=== PATIENT | male | born 1940 | race Caucasian/White ===

== ENCOUNTER → 2019-12-07 10:41 | Outpatient (BNVA) | payer MEDICARE, SELFPAY | PROVIDERS: Family Provider Nurse Practitioner Family; Visit Provider Family Medicine | DX: I10 Essential (primary) hypertension (principal); N40.0 Benign prostatic hyperplasia without lower urinary tract symptoms; I25.89 Other forms of chronic ischemic heart disease; E78.2 Mixed hyperlipidemia; K21.9 Gastro-esophageal reflux disease without esophagitis | CPT/HCPCS: 80053; 80061; 84153; 85025 ==

== ENCOUNTER → 2019-12-20 09:53 | Outpatient (BNVA) | payer MEDICARE, SELFPAY | PROVIDERS: Family Provider Nurse Practitioner Family; Visit Provider Nurse Practitioner Family | DX: R73.9 Hyperglycemia, unspecified (principal); N30.00 Acute cystitis without hematuria | CPT/HCPCS: 36416; 81001; 82962; 83036; 87077; 87086; 87186 ==

== ENCOUNTER 2020-04-24 08:24 | Outpatient (CLI) | payer MEDICARE, SELFPAY ==
--- NOTE | 2020-04-24 09:00 | CT_ITS ---
WS: [id number] CTA ABDOMEN TECHNIQUE: Noncontrast plus contrast enhanced CTA of the abdominal aorta with coronal and sagittal re formatted images and additional MIP Images. CLINICAL INFORMATION: AAA COMPARISON: CT March 22, 2014 and ultrasound 08/10/2019 and 08/25/2018 DLP: 1585.[address] scans at [facility] use at least one of these dose optimization techniques: automat ed exposure control; mA and/or kV adjustment per patient size (includes targeted exams where dose is matched to clinical indication); or iterative reconstruction. FINDINGS: Again seen is the infrarenal abdominal aortic aneurysm unchanged since the CT in 2013 measuring 3.2 x 3.4 x 7.1 cm AP by transverse by craniocaudal. Moderate atheromatous disease abdominal aorta. 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 SMA is patent. Proximal renal arteries are patent with mild atheromatous disease. Tortuous calcified common iliac arteries. Subsegmental atelectasis in the lung bases. Small pericardial effusion. Normal GE junction. Mild diff use infiltration of the liver. Adrenal glands are normal. Normal renal parenchymal enhancement. Fatty atrophy of the pancreas. Tiny cystic lesion involving the pancreatic body contiguous with the duct l ikely represent sidebranch IPM and measuring 9 mm. This appears stable since 2013. Tiny calculus in the proximal right ureter measuring 5 mm. Mild right pelvocaliectasis. Distal right ureter is decompressed. Tiny calculus at the right UVJ which appears within the bladder measuring 3 m m. Left ureter is decompressed. Left lower pole renal cyst measuring 1.6 cm. Enlarged prostate measur ing 4.4 x 5.9 CM. Recommend correlation PSA. Sigmoid diverticulosis. No evidence of acute diverticuli tis. Prior appendectomy. No abdominal lymphadenopathy. No inguinal lymphadenopathy. Disc space narrowing worse L5-S1 with endp late sclerosis. CT/CT angio abdomen [id number] IMPRESSION: 1. Stable infrarenal abdominal aortic aneurysm measuring3.2 x 3.4 x 7.1 cm AP by transverse by craniocaudal unchanged since 2013 2. 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 3. Tiny calculus distal right ureter measuring 5 mm with mild right pelvic mary iectasis. Tiny calculus adjacent to the right UVJ which appears within the blad nayely measuring 3 mm. Mid and distal right ureter is decompressed. 4. Enlarged prostate. Recommend correlation PSA. 5. 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 This appears unc hanged since 2014
[2020-04-24 09:27] LABS: Blood Urea Nitrogen 18 mg/dL (8-23)
[2020-04-24] MEDS: iohexol 350 mg/mL 100 mL Btl IV (09:50)
== END 2020-04-24 08:25 | disposition home or self-care (01) ==
LOC: RADWPI 08:27
PROVIDERS: Family Provider Family Medicine; PCP Family Medicine; Visit Provider Internal Medicine Cardiovascular Disease
DX: I71.4 Abdominal aortic aneurysm, without rupture (principal); I72.3 Aneurysm of iliac artery; N20.1 Calculus of ureter; N40.0 Benign prostatic hyperplasia without lower urinary tract symptoms
CPT/HCPCS: 74175; 82565; 84520; Q9967

== ENCOUNTER → 2021-02-11 11:19 | Outpatient (BNVA) | payer MEDICARE, SELFPAY | PROVIDERS: Family Provider Family Medicine; PCP Family Medicine; Visit Provider Internal Medicine Cardiovascular Disease | DX: Z01.818 Encounter for other preprocedural examination (principal); Z20.822 Contact with and (suspected) exposure to COVID-19; Z11.52 Encounter for screening for COVID-19; I10 Essential (primary) hypertension; I25.10 Atherosclerotic heart disease of native coronary artery without angina pectoris; E78.2 Mixed hyperlipidemia; Z45.010 Encounter for checking and testing of cardiac pacemaker pulse generator [battery]; I71.4 Abdominal aortic aneurysm, without rupture; R73.9 Hyperglycemia, unspecified | CPT/HCPCS: 80048; 85025; 85610; 86850; 86900; 87635 ==

== ENCOUNTER 2021-02-15 13:34 | Observation (INO) | payer MEDICARE, SELFPAY ==
[2021-02-15 11:39] VITALS: BMI 31.2
--- NOTE | 2021-02-15 12:23 | W.PM.OPSUD ---
Surgery/Procedure H&P Update DATE OF PROCEDURE: February 15, 2021 DATE H&P PERFORMED: 02/11/21 H&P UPDATE INFORMATION: I have reviewed H&P completed within last 30 days, I have examined patient prior to procedure and No changes to prior documentation PREOP DIAGNOSIS: Pacemaker ALFONZO PRIMARY INDICATION FOR PROCEDURE: Pacemaker ALFONZO PLANNED PROCEDURE: Operation Date: 02/15/21 12:00 Proposed Procedures p Pacemaker Generator Change ppm(Not Applicable) - Sanjuana Craven MD PATIENT REASSESSED PRIOR TO SEDATION, WITH NO CHANGE NOTED: Yes PHYSICAL EXAM: alert, oriented x 3, clear to auscultation bilaterally and regular rate & rhythm AIRWAY EVAL/ANESTHESIA PLAN: normal airway, see other exam findings, ASA II, ASA III, Local Anesthesia, Risks, benefits & alternatives of sedation and/or procedure discussed and Patient agrees to continue as planned
[2021-02-15 13:28] VITALS: BP 152/83; PULSE 61; PULSE 62; RESP 17; TEMP 36.3; O2SAT 94
--- NOTE | 2021-02-15 13:32 | PM.OP ---
Operative Report Date of procedure: February 15, 2021 Pre-op Diagnosis: Pacemaker ALFONZO Procedure: PROCEDURE: PACEMAKER REVISION PREOPERATIVE DIAGNOSIS: Pacemaker elective replacement indication. POSTOPERATIVE DIAGNOSIS: Pacemaker elective replacement indication. ESTIMATED BLOOD LOSS: Around 5 milliliters. COMPLICATIONS: None. BRIEF HISTORY: The patient is a 80-year-old white male who had a permanent pacemaker implantation for symptomatic bradycardia/high degree heart block. The patient was found to have elective replacement indication, during routine office followup evaluation. For further management of patient's condition for the symptomatic bradycardia, the patient required a pacemaker revision. Patient required a dual-chamber pacemaker for symptom relief and the need for AV synchrony The procedure was explained to the patient in detail with the risks and benefits. The risks of bleeding, hematoma, vascular injury, infection and other concomitant complications were explained in detail, which the patient understood well and consented to proceed. PROCEDURES PERFORMED: 1. Explantation of the old pacemaker generator. 2. Implantation of the new generator. The patient brought to the Cardiac [employer]. The left side of the neck and the subclavian area were cleaned and draped in a sterile fashion. 1% Xylocaine was used for local anesthetic agent. A 2 inch long incision was made just below the previous pacemaker scar. By sharp and blunt dissection, the pacemaker pocket was accessed. The old generator was delivered from the pocket. The generator was detached from the lead. The new Medtronic generator was attached to the lead. The pacemaker pocket was copiously irrigated with vancomycin solution. Complete hemostasis was achieved. The lead was positioned behind the generator and the generator was attached to the pectoralis fascia by suturing with 0 Surgilon. Sponge counts were confirmed. The pacemaker pocket was closed in layers. Skin was approximated using 4-0 Vicryl. EXPLANTED DEVICE: Pacemaker Generator: Brand: VERSA. Model number: [id number]. Serial number: [id number]. Date of implant: IMPLANTED DEVICES: Ventricular Lead: Date of implantation: 04/01/2005 Model number: [id number]/58 Serial number: [id number] Make: Medtronic. Atrial lead Date of implantation: 04/01/2005 Model number: [id number]/[id number] Serial number: [id number] Make: Medtronic. Implanted Generator: Date of implantation : 02/15/2021 Brand: [place] SISI Griffiths. Model number: [id number] Serial number: [id number] Make: Medtronic Stimulation Threshold: The ventricular sensing was not obtained because of the pacemaker dependency. Ventricular lead impedance was 551 ohms and the pacing threshold was 0.075 volts at .4 milliseconds. The atrial sensing was 2.4 millivolts. Atrial lead impedance was 342 ohms and the pacing threshold was 2.5 volts at 0.4 milliseconds. The pacemaker was set for DDDR mode with an upper rate of 130 and a lower rate of 60. A pressure dressing was applied over the pacemaker site. The patient was transferred back to medical floor in stable condition. Sponge counts were correct.
[2021-02-15 14:50] VITALS: PULSE 61; RESP 18; O2SAT 97
[2021-02-15 15:54] VITALS: BP 149/79; PULSE 61; RESP 17; TEMP 36.4; O2SAT 97
[2021-02-15] MEDS: tamsulosin 0.4 mg Capsule PO (17:37)
[2021-02-15] MEDS: lisinopril 20 mg Tablet 40 MG PO (17:37)
[2021-02-15] MEDS: TRAMadol 50 mg Tablet PO (17:38)
--- NOTE | 2021-02-15 18:32 | PC.NURSE ---
Pt resting in bed. Surgical site assessed-- C/D/I, no signs of hematoma, sling in place. Call light within reach, no needs at this time.
[2021-02-15 19:41] VITALS: BP 115/69; PULSE 83; RESP 18; TEMP 37; O2SAT 93
[2021-02-15 20:35] VITALS: PULSE 65; RESP 17; O2SAT 96
[2021-02-15 22:00] VITALS: PULSE 59
[2021-02-15] MEDS: metoprolol tartrate 50 mg Tablet 100 MG PO (22:13)
[2021-02-16] VITALS (7 sets, daily range): BP systolic 127–148; BP diastolic 70–81; PULSE 59–61; RESP 17–18; TEMP 36.5–36.7; O2SAT 93
--- NOTE | 2021-02-16 06:00 | ECG_ITS ---
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 Measurements Intervals [place] Rate: 60 P: 169 OK: 176 QRS: -75 QRSD: 208 T: 104 QT: 496 QTc: 496 Interpretive Statements ELECTRONIC ATRIAL PACEMAKER ELECTRONIC VENTRICULAR PACEMAKER ABNORMAL RHYTHM ECG No previous ECG available for comparison Electronically Signed On 02-17-2021 10:52:55 CDT by Mireay Hudson M.D. [id number]
[2021-02-16] MEDS: sodium chloride 0.9% 1,000 ML 75 ML IV (09:49)
[2021-02-16] MEDS: lisinopril 20 mg Tablet 40 MG PO (09:51)
[2021-02-16] MEDS: metoprolol tartrate 50 mg Tablet 100 MG PO (09:51)
[2021-02-16] MEDS: tamsulosin 0.4 mg Capsule PO (09:52)
[2021-02-16] MEDS: aspirin 81 mg EC Tablet PO (09:53)
[2021-02-16] MEDS: atorvastatin 40 mg Tablet 80 MG PO (09:53)
--- NOTE | 2021-02-16 12:09 | PM.DCS ---
Discharge Providers Date of Admission: 02/15/21 13:34 Date of Discharge: February 16, 2021 Attending Provider at Admission: Sanjuana Craven MD Attending Provider at Discharge: Sanjuana Craven MD Primary Care Provider: Corona Sahni MD Diagnoses at Discharge Discharge Diagnosis (1) Pacemaker at end of battery life: Status: Acute Permanent problem details: S/p generator change on February 15, 2021 (2) Atherosclerotic heart disease of [place] coronary artery without angina pectoris: Status: Acute Qualifiers: [place] vs. transplanted heart: [place] heart Qualified Code(s): I25.10 - Atherosclerotic heart disease of [place] coronary artery without angina pectoris (3) Hypertension: Status: Acute Qualifiers: Hypertension type: essential hypertension Qualified Code(s): I10 - Essential (primary) hypertension (4) Hyperlipidemia: Status: Acute Qualifiers: Hyperlipidemia type: mixed hyperlipidemia Qualified Code(s): E78.2 - Mixed hyperlipidemia (5) GERD (gastroesophageal reflux disease): Status: Acute Reason for Visit Reason for Visit: ppm gen exchange Hospital Course Hospital Course 80-year-old man with past medical history of CAD with history of PCI several years back, s/p permanent pacemaker placement in March 2005 and subsequent generator change in March 2013 was admitted electively after his pacemaker was found at [facility] for generator change by Dr. Craven. He underwent successful explantation of previous generator followed by implantation of new generator. Pacemaker was interrogated and was found to be functioning normally. No complaints overnight and this morning. Physical Exam Narrative: EXAM NARRATIVE: GENERAL: Obese elderly man lying in bed in no acute distress HEENT: Pupils equal round reactive to light. No pallor or icterus. NECK: No JVD appreciated. No carotid bruit. CARDIOVASCULAR SYSTEM: S1-S2 regular. No S3 or S4 present. No murmur or gallops. RESPIRATORY SYSTEM: Chest clear to auscultation. No wheezes rhonchi or rubs heard. Left upper chest generator in situ; incision well approximated with no significant hematoma; mild bruising noted. ABDOMEN: Soft, nontender and nondistended. Normal bowel sounds present. EXTREMITIES: No cyanosis or clubbing. No edema. CHEMISTRY ASSOCIATE: Patient is alert oriented ?3. No focal neurological deficits. Discharge Data Data Completed and Pending: Completed Studies During Hospitalization Category Date Time Status ADMINISTRATION CLERK request for service Routin e Exams 02/15/21 11:00 Completed Vitals: Last Vital Signs Temp 97.7 F 02/16/21 08:00 Pulse 60 02/16/21 08:33 Resp 18 02/16/21 08:33 BP 148/81 02/16/21 08:00 Pulse Ox 93 02/16/21 08:33 Discharge Plan Discharge Patient Disposition: Home Condition: Stable Prescriptions: New cephalexin 500 mg capsule 500 mg PO Q6H 5 Days Qty: 20 RF: 0 Continued tramadol 50 mg tablet 50 mg PO DAILY PRN (Reason: pain) RF: 0 aspirin [Adult Low Dose Aspirin] 81 mg tablet,delayed release (DR/EC) 81 mg PO DAILY RF: 0 clopidogrel 75 mg tablet 75 mg PO DAILY RF: 0 lisinopril 40 mg tablet 40 mg PO BID Qty: 180 RF: 3 metoprolol tartrate 100 mg tablet 100 mg PO Q12H Qty: 180 RF: 3 nitroglycerin [Nitrostat] 0.4 mg tablet, sublingual 0.4 mg SUBLINGUAL Q5M PRN (Reason: chest pain) Qty: 30 RF: 1 metformin 500 mg tablet 500 mg PO BID RF: 0 albuterol sulfate [ProAir HFA] 90 mcg/actuation HFA aerosol inhaler 2 puff INHALATION QID PRN (Reason: shortness of breath or wheezing) Qty: 6.7 RF: 0 tamsulosin 0.4 mg capsule 0.4 mg PO BID Qty: 180 RF: 3 rosuvastatin [Crestor] 40 mg tablet 40 mg PO DAILY Qty: 90 RF: 1 (DME) Blood Glucose Test Strip See Rx Instructions .ROUTE .MEDSUPPLY Qty: 50 RF: 3 amlodipine 5 mg tablet See Rx Instructions .ROUTE .COMPLEX Qty: 90 RF: 3 Fish Oil 1,200 mg capsule 1,200 mg PO DAILY RF: 0 Discharge Orders: Discharge Order (Routine); Ordered 02/16/21 Ordered By: Mireya Hudson Referrals: Sanjuana Craven MD [Physician] - 2 months Cady Wahl FNP [Nurse Practitioner] - 7-10 days (Please contact [facility] services Thursday for a follow-up appointment with Cady Wahl as well as a follow-up appointment with Dr. Craven. ) Discharge Diet: Cardiac Discharge Activity: Increase activity as tolerated and Limit activity as instructed Patient Instructions: Cephalexin (By mouth), Pacemaker (DC), Opioid Safety, Post Pacemaker - Herber Discharge Attestations Time Spent in Discharge Care*: greater than 30 min Specific Discharge Activities: educating patient, documenting/other paperwork and evaluating patient/reviewing data Status at Discharge: Cognitive status at discharge: cognitively intact, Behavioral status at discharge: cooperative, Overall status at discharge: patient is back to baseline Quality Metrics Clinical Quality Measures During this hospital stay, did patient experience: None Coding Level of Care Code Acute Chg FW DC note Diagnoses Pacemaker at end of battery life Z45.010 Atherosclerotic heart disease of [place] coronary artery without angina pectoris I25.10 [place] vs. transplanted heart: [place] heart Hypertension I10 Hypertension type: essential hypertension Hyperlipidemia E78.2 Hyperlipidemia type: mixed hyperlipidemia GERD (gastroesophageal reflux disease) K21.9
--- NOTE | 2021-02-16 13:43 | PC.NURSE ---
discharge instructions discussed with patient. patient verbalized understanding of those instructions. dressing to incision was changed. pacemaker ID booklet was given to patient. activity restrictions were also gone over as well as incision care. IV was removed tip intact bleeding controlled with 2x2. patient taken by wheelchair, accompanied by son to private vehicle.
== END 2021-02-16 14:07 | disposition home or self-care (01) ==
LOC: MEDSURG 14:00
PROVIDERS: Admitting Provider Internal Medicine Cardiovascular Disease; PCP Family Medicine; Visit Provider Internal Medicine Cardiovascular Disease
DX: Z45.010 Encounter for checking and testing of cardiac pacemaker pulse generator [battery] (principal); I25.10 Atherosclerotic heart disease of native coronary artery without angina pectoris; I10 Essential (primary) hypertension; E78.2 Mixed hyperlipidemia; K21.9 Gastro-esophageal reflux disease without esophagitis; I25.110 Atherosclerotic heart disease of native coronary artery with unstable angina pectoris; N40.0 Benign prostatic hyperplasia without lower urinary tract symptoms; E78.5 Hyperlipidemia, unspecified; M19.90 Unspecified osteoarthritis, unspecified site; Z87.891 Personal history of nicotine dependence
CPT/HCPCS: 33213; 36415; 93005; 97165; C1769; C1786; G0378; J0690; J2250; J3010; J7030; J7050

== ENCOUNTER 2021-03-27 06:41 | Outpatient (CLI) | payer MEDICARE, SELFPAY ==
--- NOTE | 2021-03-27 07:15 | USCV_ITS ---
Eligio Welch Age: 80 Gender: M : 1940 Exam Date: 03/27/2021 07:01 Ordering Phys: Sanjuana Craven MD ([email or web address]) Technologist: ROWDY Exam Location: [facility] [place] Indication: AAA HISTORY: AAA Diameter (cm) AP x Transverse x Length Velocity (cm/s) Waveform Prox Aorta: 3.02 x 3.41 x 94.30 Mid Aorta: 3.54 x 4.18 x 110.90 Distal Aorta: 3.25 x 3.32 x 43.80 Right Iliac Prox: 1.55 x 1.79 x 35.50 Left Iliac Prox: 1.41 x 2.17 x 85.90 Stent Prox Landing x x Aneurysmal Sac Max x x Lt Lat Sac Dim Rt Lat Sac Dim Stent Dist Landing x x Right Iliac Stent x x Left Iliac Stent x x Right Renal Art Left Renal Art FINDINGS: Moderate to heavy dense irregular diffuse plaques in the abdominal aorta. Aneurysmal dilatation of the mid to distal abdominal aorta Dilated common iliac arteries bilaterally CONCLUSIONS 1. Ectatic proximally abdominal aorta 2. Aneurysmal dilatation of the mid to distal abdominal aorta, measuring 3.54 x 4.18 at the mid segment and 3.25 x 3.32 distally. 3. Moderate to heavy dense irregular diffuse plaques in the abdominal aorta. 4. Diffusely ectatic proximal iliac arteries bilaterally. 5. No evidence of any significant stenosis, based on the Doppler flow velocities. Compared to the study from 08/10/2019. There may not be a significant change. However the measurements done on the study on 08/10/2019, on close examination were found to be incorrect. Dr Sanjuana Craven MD [facility] (Electronically Signed) Final Date: 02 April 2021 09:45 S
== END 2021-03-27 06:42 | disposition home or self-care (01) ==
LOC: RAD 06:43
PROVIDERS: PCP Family Medicine; Visit Provider Internal Medicine Cardiovascular Disease
DX: I71.4 Abdominal aortic aneurysm, without rupture (principal)
CPT/HCPCS: 93978

== ENCOUNTER → 2022-01-17 10:13 | Outpatient (BNVA) | payer MEDICARE, SELFPAY | PROVIDERS: PCP Family Medicine; Visit Provider Internal Medicine Cardiovascular Disease | DX: Z95.0 Presence of cardiac pacemaker (principal) | CPT/HCPCS: 93280 ==

== ENCOUNTER → 2022-01-20 10:22 | Outpatient (BNVA) | payer MEDICARE, SELFPAY | PROVIDERS: PCP Family Medicine; Visit Provider Internal Medicine Cardiovascular Disease | DX: I71.4 Abdominal aortic aneurysm, without rupture (principal); Z95.0 Presence of cardiac pacemaker; I25.10 Atherosclerotic heart disease of native coronary artery without angina pectoris; I10 Essential (primary) hypertension; E78.2 Mixed hyperlipidemia; Z87.891 Personal history of nicotine dependence | CPT/HCPCS: 99214 ==

== ENCOUNTER 2022-02-03 14:12 | Outpatient (CLI) | payer MEDICARE, SELFPAY ==
--- NOTE | 2022-02-03 14:45 | USCV_ITS ---
Eligio Welch Age: 81 Gender: M : 1940 Exam Date: 02/03/2022 14:31 Ordering Phys: Sanjuana Craven MD ([email or web address]) Technologist: Francisco Pond Exam Location: [facility] [place] Indication: AAA HISTORY: Diameter (cm) AP x Transverse x Length Velocity (cm/s) Waveform Prox Aorta: 3.19 x 3.19 x 51.30 Mid Aorta: 3.04 x 3.04 x 81.60 Distal Aorta: 3.92 x 4.16 x 60.30 Right Iliac Prox: 1.97 x 1.77 x 134.20 Left Iliac Prox: 1.66 x 1.75 x 85.50 Stent Prox Landing x x Aneurysmal Sac Max x x Lt Lat Sac Dim Rt Lat Sac Dim Stent Dist Landing x x Right Iliac Stent x x Left Iliac Stent x x Right Renal Art Left Renal Art FINDINGS: Aneurysmal dilatation of the mid and distal abdominal aorta. 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 The distal aortic aneurysm appears to have mural thrombus, organized 2. Aneurysmal dilatation of the proximal common iliac arteries bilaterally measuring 1.97 x 1.77 on the right side and 1.66 x 1.75 on the left side Compared to the study from 03/27/2021, there is slight increase in the size of the aneurysm of the distal abdominal aorta and iliac arteries- the distal abdominal aorta measured 3.25 x 3.32 before. The right and left iliac artery dimensions were 1.55 x 1.79 on the right and 1.41 x 2.17 on the left respectively. Dr Sanjuana Craven MD [facility] (Electronically Signed) Final Date: 05 February 2022 22:37 S
== END 2022-02-03 14:13 | disposition home or self-care (01) ==
PROVIDERS: PCP Family Medicine; Visit Provider Internal Medicine Cardiovascular Disease
DX: I71.4 Abdominal aortic aneurysm, without rupture (principal)
CPT/HCPCS: 93978

== ENCOUNTER → 2022-04-04 07:58 | Outpatient (BNVA) | payer MEDICARE, SELFPAY | PROVIDERS: PCP Family Medicine; Visit Provider Internal Medicine Cardiovascular Disease | DX: Z45.010 Encounter for checking and testing of cardiac pacemaker pulse generator [battery] (principal) | CPT/HCPCS: 93280 ==

== ENCOUNTER → 2022-06-04 09:44 | Outpatient (BNVA) | payer MEDICARE, SELFPAY | PROVIDERS: PCP Family Medicine; Visit Provider Family Medicine | DX: E11.65 Type 2 diabetes mellitus with hyperglycemia (principal); I10 Essential (primary) hypertension; E78.2 Mixed hyperlipidemia; M19.90 Unspecified osteoarthritis, unspecified site; E78.5 Hyperlipidemia, unspecified | CPT/HCPCS: 80053; 80061; 83036 ==

== ENCOUNTER → 2022-07-04 09:44 | Outpatient (BNVA) | payer MEDICARE, SELFPAY | PROVIDERS: PCP Family Medicine; Visit Provider Internal Medicine Cardiovascular Disease | DX: Z45.010 Encounter for checking and testing of cardiac pacemaker pulse generator [battery] (principal) | CPT/HCPCS: 93280 ==

== ENCOUNTER → 2022-07-17 12:04 | Outpatient (BNVA) | payer MEDICARE, SELFPAY | PROVIDERS: PCP Family Medicine; Visit Provider Internal Medicine Cardiovascular Disease | DX: I25.10 Atherosclerotic heart disease of native coronary artery without angina pectoris (principal); I10 Essential (primary) hypertension; I71.4 Abdominal aortic aneurysm, without rupture; E11.65 Type 2 diabetes mellitus with hyperglycemia; Z79.84 Long term (current) use of oral hypoglycemic drugs; Z95.0 Presence of cardiac pacemaker; Z87.891 Personal history of nicotine dependence | CPT/HCPCS: 99213; 99214 ==

== ENCOUNTER → 2022-10-03 08:16 | Outpatient (BNVA) | payer MEDICARE, SELFPAY | PROVIDERS: PCP Family Medicine; Visit Provider Internal Medicine Cardiovascular Disease | DX: Z45.010 Encounter for checking and testing of cardiac pacemaker pulse generator [battery] (principal) | CPT/HCPCS: 93280 ==

== ENCOUNTER → 2022-12-10 08:39 | Outpatient (BNVA) | payer MEDICARE, SELFPAY | PROVIDERS: PCP Family Medicine; Visit Provider Family Medicine | DX: I10 Essential (primary) hypertension (principal); I25.10 Atherosclerotic heart disease of native coronary artery without angina pectoris; E11.65 Type 2 diabetes mellitus with hyperglycemia | CPT/HCPCS: 80053; 80061; 83036 ==

== ENCOUNTER → 2023-01-15 09:49 | Outpatient (BNVA) | payer MEDICARE, SELFPAY | PROVIDERS: PCP Family Medicine; Visit Provider Internal Medicine Cardiovascular Disease | DX: I25.10 Atherosclerotic heart disease of native coronary artery without angina pectoris (principal); Z95.0 Presence of cardiac pacemaker; I10 Essential (primary) hypertension; E11.9 Type 2 diabetes mellitus without complications; E78.2 Mixed hyperlipidemia; Z87.891 Personal history of nicotine dependence; Z79.82 Long term (current) use of aspirin; Z79.84 Long term (current) use of oral hypoglycemic drugs | CPT/HCPCS: 99214 ==

== ENCOUNTER → 2023-06-09 09:33 | Outpatient (BNVA) | payer MEDICARE, SELFPAY | PROVIDERS: PCP Family Medicine; Visit Provider Family Medicine | DX: E11.9 Type 2 diabetes mellitus without complications (principal); I25.10 Atherosclerotic heart disease of native coronary artery without angina pectoris; I10 Essential (primary) hypertension; E78.5 Hyperlipidemia, unspecified | CPT/HCPCS: 80053; 80061; 83036 ==

== ENCOUNTER → 2023-07-30 09:33 | Outpatient (BNVA) | payer MEDICARE, SELFPAY | PROVIDERS: PCP Family Medicine; Visit Provider Internal Medicine Cardiovascular Disease | DX: I71.40 Abdominal aortic aneurysm, without rupture, unspecified (principal); E11.9 Type 2 diabetes mellitus without complications; Z79.84 Long term (current) use of oral hypoglycemic drugs; Z95.0 Presence of cardiac pacemaker; I25.10 Atherosclerotic heart disease of native coronary artery without angina pectoris; I10 Essential (primary) hypertension; E78.2 Mixed hyperlipidemia | CPT/HCPCS: 99214 ==

== ENCOUNTER → 2023-12-10 08:32 | Outpatient (BNVA) | payer MEDICARE, SELFPAY | PROVIDERS: PCP Family Medicine; Visit Provider Family Medicine | DX: E11.9 Type 2 diabetes mellitus without complications (principal); I10 Essential (primary) hypertension; E78.2 Mixed hyperlipidemia | CPT/HCPCS: 80053; 80061; 83036 ==

== ENCOUNTER → 2024-08-11 11:24 | Outpatient (BNVA) | payer MEDICARE, SELFPAY | PROVIDERS: PCP Family Medicine; Visit Provider Family Medicine | DX: I10 Essential (primary) hypertension; E78.2 Mixed hyperlipidemia; E11.9 Type 2 diabetes mellitus without complications | CPT/HCPCS: 80053; 80061; 83036; 85025 ==

== ENCOUNTER → 2024-11-04 10:39 | Outpatient (BNVA) | payer MEDICARE, SELFPAY | PROVIDERS: PCP Family Medicine; Visit Provider Internal Medicine Cardiovascular Disease | DX: Z45.018 Encounter for adjustment and management of other part of cardiac pacemaker (principal) | CPT/HCPCS: 93280 ==

== ENCOUNTER → 2025-02-09 08:51 | Outpatient (BNVA) | payer MEDICARE, SELFPAY | PROVIDERS: PCP Family Medicine; Visit Provider Family Medicine | DX: R73.9 Hyperglycemia, unspecified (principal); I10 Essential (primary) hypertension; E78.2 Mixed hyperlipidemia; E11.9 Type 2 diabetes mellitus without complications | CPT/HCPCS: 80053; 80061; 83036; 85025 ==

== ENCOUNTER → 2025-08-10 09:04 | Outpatient (BNVA) | payer MEDICARE, SELFPAY | PROVIDERS: PCP Family Medicine; Visit Provider Family Medicine | DX: I10 Essential (primary) hypertension (principal); E78.2 Mixed hyperlipidemia; E11.9 Type 2 diabetes mellitus without complications; N40.0 Benign prostatic hyperplasia without lower urinary tract symptoms | CPT/HCPCS: 80053; 80061; 83036; 84153; 85025 ==